=== PATIENT | male | born 1955 | race Caucasian/White ===

== ENCOUNTER 2020-11-01 08:57 | Inpatient (IN) ==
[2020-11-01] MEDS ORDERED: methylPREDNISolone SOD SUC 125 MG/2 ML VIAL IV STA (09:21)
[2020-11-01] MEDS ORDERED: ALBUTEROL 2.5 MG/3 ML NEB RESP TX STA (09:23)
[2020-11-01 09:31] LABS: Basophils # 0.1 10*3/uL (0.0-0.2); Basophils % 0.4 % (0.0-0.8); Eosinophils % 0.2 % (0.00-10.9); Hematocrit 43.6 VOL% (42.0-52.0); Hemoglobin 13.5 GM/DL (14.0-18.0); Immature Granulocytes % 1.9 %; Immature Granulocytes Absolute 0.21 #; Lymphocytes # 1.4 10*3/uL (1.4-4.0); Mean Platelet Volume 8.9 FL (9.6-12.0); Monocytes % 9.6 % (1.7-12.7); Neutrophils % 75.9 % (38.7-73.9); Platelet Count 464 T/CUMM (130-400); Red Blood Count 4.69 MC/CUMM (3.8-5.5); Red Cell Distribution Width 16.1 % (9.3-17.3); White Blood Count 11.3 T/CUMM (4-12)
[2020-11-01 09:41] LABS: Albumin 2.6 G/DL (3.4-5.0); Bilirubin,Total 0.5 MG/DL (0.2-1.0); Calcium 9.7 MG/DL (8.5-10.1); Total Protein 9.1 G/DL (6.4-8.3)
[2020-11-01] MEDS ORDERED: cefTRIAXone 1,000 MG in SODIUM CHLORIDE 0.9% 100 ML IV STA (11:08)
[2020-11-01 12:45] LABS: Ferritin 134.5 ng/ml (26-388)
[2020-11-01] MEDS ORDERED: GLUCAGON 1 MG VIAL IM PRN (12:51)
[2020-11-01] MEDS ORDERED: hydrALAZINE 20 MG/1 ML VIAL IV PRN (12:51)
[2020-11-01] MEDS ORDERED: DEXTROSE 50% 25 GM/50 ML VIAL IV PRN (12:51)
[2020-11-01] MEDS ORDERED: ACETAMINOPHEN 325 MG TABLET PO PRN (12:51)
[2020-11-01] MEDS ORDERED: NICOTINE 14 MG/24 HR PATCH TRANSDERM PRN (13:16)
[2020-11-01 13:22] LABS: Risk Ratio 3.5; Thyroid Stimulating Hormone 4.23 uIU/ml (0.358-3.74); VLDL CHOLESTEROL 29.2 MG/DL
[2020-11-01] MEDS: traMADol 50 MG TABLET PO SCH ×3 (13:30→21:14)
[2020-11-01] MEDS: ALBUTEROL/IPRATROPIUM 3 ML NEB RESP TX SCH ×2 (13:49→19:49)
[2020-11-01 14:08] LABS: ABG Base Excess -3.4 MMOL/L (-2.5-2.5); ABG HCO3 21.6 MMOL/L (20-26); ABG Oxygen Saturation 97.1 % (95-100); ABG PCO2 34.3 MM HG (35-48); ABG PH 7.391 (7.35-7.45); ABG PO2 89.1 MM HG (80-95); ABG TCO2 18.3 MMOL/L (23-27)
[2020-11-01] MEDS: methylPREDNISolone SOD SUC 125 MG/2 ML VIAL IV SCH (18:26)
[2020-11-01] MEDS: ENOXAPARIN 40 MG/0.4 ML SYRINGE SUBCUT SCH ×2 (18:26→18:46)
[2020-11-01] MEDS: AZITHROMYCIN INJ 500 MG in SODIUM CHLORIDE 0.9% 250 ML IV SCH (18:27)
[2020-11-01] MEDS: clonazePAM 0.5 MG TABLET PO SCH (21:13)
[2020-11-01] MEDS: carvediloL 3.125 MG TABLET PO SCH (21:14)
[2020-11-02] MEDS: ALBUTEROL/IPRATROPIUM 3 ML NEB RESP TX SCH ×4 (01:34→19:44)
[2020-11-02] MEDS: methylPREDNISolone SOD SUC 125 MG/2 ML VIAL IV SCH ×3 (02:05→21:06)
[2020-11-02] MEDS: traMADol 50 MG TABLET PO SCH ×6 (02:29→22:01)
[2020-11-02 07:47] LABS: Basophils % 0.1 % (0.0-0.8); Hematocrit 37.2 VOL% (42.0-52.0); Hemoglobin 11.8 GM/DL (14.0-18.0); Immature Granulocytes % 0.7 %; Immature Granulocytes Absolute 0.07 #; Lymphocytes # 1.1 10*3/uL (1.4-4.0); Lymphocytes % 10.4 % (21.2-54.2); Mean Corpuscular HGB Conc 31.7 GM/DL (32-36); Mean Corpuscular Volume 90.3 FL (87-102); Mean Platelet Volume 9.2 FL (9.6-12.0); Monocytes % 2.9 % (1.7-12.7); Neutrophils % 85.9 % (38.7-73.9); Platelet Count 408 T/CUMM (130-400); Red Blood Count 4.12 MC/CUMM (3.8-5.5); Red Cell Distribution Width 15.9 % (9.3-17.3); White Blood Count 10.1 T/CUMM (4-12)
[2020-11-02 08:16] LABS: Calcium 9.1 MG/DL (8.5-10.1); Osmolality,Calculated 281.7 MOS/KG (273-304); Potassium 4.6 MMOL/L (3.5-5.1)
[2020-11-02] MEDS: CHOLECALCIFEROL 1,000 UNIT TABLET PO SCH (09:27)
[2020-11-02] MEDS: ASPIRIN EC 81 MG TABLET PO SCH (09:27)
[2020-11-02] MEDS: lisinopriL 20 MG TABLET PO SCH (09:27)
[2020-11-02] MEDS: ATORVASTATIN 20 MG TABLET PO SCH (09:28)
[2020-11-02] MEDS: SERTRALINE 100 MG TABLET PO SCH (09:28)
[2020-11-02] MEDS: carvediloL 3.125 MG TABLET PO SCH ×2 (09:29→20:46)
[2020-11-02] MEDS: cefTRIAXone 1,000 MG in SYRINGE 1 EACH IV SCH (13:25)
[2020-11-02] MEDS: AZITHROMYCIN INJ 500 MG in SODIUM CHLORIDE 0.9% 250 ML IV SCH (18:39)
[2020-11-02] MEDS: ENOXAPARIN 40 MG/0.4 ML SYRINGE SUBCUT SCH (18:40)
[2020-11-02] MEDS: clonazePAM 0.5 MG TABLET PO SCH (20:46)
[2020-11-03] MEDS: ALBUTEROL/IPRATROPIUM 3 ML NEB RESP TX SCH ×3 (01:49→13:20)
[2020-11-03] MEDS: traMADol 50 MG TABLET PO SCH ×4 (01:54→16:04)
[2020-11-03 05:21] LABS: Basophils % 0.1 % (0.0-0.8); Hematocrit 36.4 VOL% (42.0-52.0); Hemoglobin 10.9 GM/DL (14.0-18.0); Immature Granulocytes % 0.6 %; Immature Granulocytes Absolute 0.08 #; Mean Corpuscular HGB Conc 29.9 GM/DL (32-36); Mean Corpuscular Volume 95.3 FL (87-102); Mean Platelet Volume 9.1 FL (9.6-12.0); Monocytes % 4.3 % (1.7-12.7); Platelet Count 398 T/CUMM (130-400); Red Blood Count 3.82 MC/CUMM (3.8-5.5); Red Cell Distribution Width 16.1 % (9.3-17.3); White Blood Count 12.8 T/CUMM (4-12)
[2020-11-03] MEDS: methylPREDNISolone SOD SUC 125 MG/2 ML VIAL IV SCH ×2 (05:34→19:11)
[2020-11-03 05:50] LABS: Calcium 8.9 MG/DL (8.5-10.1); Osmolality,Calculated 287.5 MOS/KG (273-304); Potassium 4.7 MMOL/L (3.5-5.1)
[2020-11-03] MEDS: carvediloL 3.125 MG TABLET PO SCH (09:00)
[2020-11-03] MEDS: lisinopriL 20 MG TABLET PO SCH (09:01)
[2020-11-03] MEDS: ASPIRIN EC 81 MG TABLET PO SCH (09:01)
[2020-11-03] MEDS: ATORVASTATIN 20 MG TABLET PO SCH (09:01)
[2020-11-03] MEDS: CHOLECALCIFEROL 1,000 UNIT TABLET PO SCH (09:01)
[2020-11-03] MEDS: SERTRALINE 100 MG TABLET PO SCH (09:01)
[2020-11-03 11:25] VITALS: BP 119/76
[2020-11-03] MEDS ORDERED: methylPREDNISolone SOD SUC 125 MG/2 ML VIAL IV SCH (14:00)
[2020-11-03] MEDS ORDERED: CALCIUM CARBONATE CHEW 500 MG TABLET PO ONE (15:38)
[2020-11-03] MEDS: cefTRIAXone 1,000 MG in SYRINGE 1 EACH IV SCH (16:03)
[2020-11-03] MEDS: ENOXAPARIN 40 MG/0.4 ML SYRINGE SUBCUT SCH (19:11)
== END 2020-11-03 18:35 | disposition home health service (06) | DRG 194 ==
LOC: N.ED 08:57 → N.EDINP 11:16 → N.4E 15:08
PROVIDERS: ADMIT Internal Medicine; ATTEND Internal Medicine

== ENCOUNTER 2020-12-12 03:10 | Inpatient (IN) ==
[2020-12-12] MEDS ORDERED: MIDAZOLAM 2 MG/2 ML VIAL ONE (03:40)
[2020-12-12] MEDS ORDERED: SODIUM CHLORIDE 0.9% 1,000 ML IV STA (03:41)
[2020-12-12] MEDS ORDERED: MIDAZOLAM 2 MG/2 ML VIAL IV STA (03:41)
[2020-12-12] MEDS ORDERED: SODIUM CHLORIDE 0.9% 500 ML IV STA (03:41)
[2020-12-12] MEDS ORDERED: EPINEPHrine 1 MG/10 ML SYRINGE ONE ×2 (04:02→04:10)
[2020-12-12 04:10] LABS: INR 1.6; PT Patient Result 16.8 SECS (9.8-11.9)
[2020-12-12 04:15] LABS: Basophils # 0.2 10*3/uL (0.0-0.2); Basophils % 0.8 % (0.0-0.8); Eosinophils # 0.1 10*3/uL (0.0-0.87); Eosinophils % 0.2 % (0.00-10.9); Hematocrit 48.6 VOL% (42.0-52.0); Hemoglobin 14.2 GM/DL (14.0-18.0); Immature Granulocytes % 6.8 %; Immature Granulocytes Absolute 1.83 #; Lymphocytes # 2.9 10*3/uL (1.4-4.0); Lymphocytes % 10.8 % (21.2-54.2); Mean Corpuscular HGB Conc 29.2 GM/DL (32-36); Mean Corpuscular Volume 96.8 FL (87-102); Monocytes % 5.8 % (1.7-12.7); Neutrophils % 75.6 % (38.7-73.9); Platelet Count 238 T/CUMM (130-400); Red Blood Count 5.02 MC/CUMM (3.8-5.5); Red Cell Distribution Width 17.2 % (9.3-17.3); White Blood Count 27.1 T/CUMM (4-12)
[2020-12-12 04:19] LABS: Alanine Aminotransferase 33 U/L (16-61); Albumin 2.7 G/DL (3.4-5.0); Alkaline Phosphatase 119 U/L (45-117); Aspartate Amino Transferase 72 U/L (0-37); Blood Urea Nitrogen 48 MG/DL (7-18); Calcium 10.4 MG/DL (8.5-10.1); Carbon Dioxide 13 MMOL/L (21-32); Glucose 146 MG/DL (74-106); Osmolality,Calculated 303.7 MOS/KG (273-304); Potassium 4.4 MMOL/L (3.5-5.1); Sodium 145 MMOL/L (136-145); Total Protein 8.3 G/DL (6.4-8.2)
[2020-12-12 04:20] LABS: Estimated Glom Filtration Rate 0 ML/MIN
[2020-12-12] MEDS ORDERED: MEROPENEM 1,000 MG in SODIUM CHLORIDE 0.9% 100 ML IV STA (04:28)
[2020-12-12] MEDS ORDERED: NOREPINEPHRINE 8 MG in SODIUM CHLORIDE 0.9% 242 ML IV PRN (04:55)
[2020-12-12] MEDS: MIDAZOLAM 100 MG in SODIUM CHLORIDE 0.9% 80 ML IV PRN (05:00)
[2020-12-12 05:06] LABS: ABG Base Excess -12.5 MMOL/L (-2.5-2.5); ABG HCO3 14.8 MMOL/L (20-26); ABG Oxygen Saturation 96.5 % (95-100); ABG PCO2 44.9 MM HG (35-48); ABG TCO2 14.7 MMOL/L (23-27)
[2020-12-12 05:07] LABS: ABG PH 7.166 (7.35-7.45)
[2020-12-12 05:08] LABS: Lymphocytes 16 % (20-55); Metamyelocytes 1 %; Myelocytes 1 %; Platelet Estimate Adequate; Segmented Neutrophils 74 % (50-85); Total Cells Counted 100
[2020-12-12 05:52] LABS: Bilirubin,Urine Negative (Negative); Blood, Urine Small mg/dL (Negative); Glucose,Urine (UA) Negative (Negative); Ketones,Urine 20 mg/dL (Negative); Mucus,Urine Many /LPF (Occasional); Nitrite,Urine Positive (Negative); Protein,Urine 30 MG/DL; RBC,Urine 17 /HPF (0-4); Sperm,Urine Moderate /HPF (Negative); Urine Appearance CLOUDY (Clear); Urine Color Amber (Yellow); Urine Specific Gravity 1.025 (1.001-1.035); Urine Urobilinogen < 2.0 EU/DL (0.2-1.0); WBC,Urine 1 /HPF (0-6)
[2020-12-12] MEDS ORDERED: ONDANSETRON 4 MG/2 ML VIAL IV PRN (07:41)
[2020-12-12] MEDS ORDERED: ALBUTEROL 2.5 MG/3 ML NEB RESP TX PRN (07:41)
[2020-12-12] MEDS ORDERED: NICOTINE 21 MG/24 HR PATCH TRANSDERM PRN (07:41)
[2020-12-12] MEDS ORDERED: DEXTROSE 50% 25 GM/50 ML VIAL IV PRN (07:51)
[2020-12-12] MEDS ORDERED: GLUCAGON 1 MG VIAL IM PRN (07:51)
[2020-12-12] MEDS ORDERED: ENOXAPARIN 30 MG/0.3 ML SYRINGE SUBCUT SCH (08:00)
[2020-12-12 08:26] LABS: ABG Base Excess -8.3 MMOL/L (-2.5-2.5); ABG HCO3 17.8 MMOL/L (20-26); ABG Oxygen Saturation 99.3 % (95-100); ABG PCO2 39.3 MM HG (35-48); ABG PH 7.273 (7.35-7.45); ABG TCO2 16.3 MMOL/L (23-27); Allen Test Positive; Pt O2 Delivery Device Ventilator
[2020-12-12] MEDS: LACTATED RINGERS 1,000 ML IV SCH ×3 (08:30→22:59)
[2020-12-12] MEDS: PANTOPRAZOLE 40 MG VIAL IV SCH (09:20)
[2020-12-12] MEDS: MEROPENEM 500 MG in SODIUM CHLORIDE 0.9% 100 ML IV SCH ×2 (09:21→16:37)
[2020-12-12] MEDS: HYDROCORTISONE 100 MG VIAL IV SCH ×3 (09:21→20:20)
[2020-12-12] MEDS: FLUDROCORTISONE 0.1 MG TABLET PER TUBE SCH ×2 (09:21→20:19)
[2020-12-12] MEDS ORDERED: POTASSIUM PHOSPHATE 30 MMOL in SODIUM CHLORIDE 0.9% 250 ML IV ONE (09:30)
[2020-12-12] MEDS ORDERED: VANCOMYCIN INJ 750 MG in SODIUM CHLORIDE 0.9% 250 ML IV ONE (10:00)
[2020-12-12] MEDS ORDERED: LACTATED RINGERS 500 ML IV ONE (15:30)
[2020-12-12 16:40] LABS: Calcium 8.2 MG/DL (8.5-10.1); Osmolality,Calculated 305.4 MOS/KG (273-304)
[2020-12-13] MEDS: MEROPENEM 500 MG in SODIUM CHLORIDE 0.9% 100 ML IV SCH ×3 (00:08→17:15)
[2020-12-13] MEDS: HYDROCORTISONE 100 MG VIAL IV SCH ×4 (02:30→20:10)
[2020-12-13 04:43] LABS: ABG Base Excess 0.1 MMOL/L (-2.5-2.5); ABG HCO3 24.5 MMOL/L (20-26); ABG Oxygen Saturation 98.7 % (95-100); ABG PCO2 40.8 MM HG (35-48); ABG PH 7.394 (7.35-7.45); ABG TCO2 22.8 MMOL/L (23-27)
[2020-12-13 05:11] LABS: Basophils % 0.2 % (0.0-0.8); Hemoglobin 9.4 GM/DL (14.0-18.0); Immature Granulocytes % 1.5 %; Immature Granulocytes Absolute 0.27 #; Lymphocytes # 1.2 10*3/uL (1.4-4.0); Lymphocytes % 6.5 % (21.2-54.2); Mean Corpuscular HGB Conc 30.3 GM/DL (32-36); Mean Corpuscular Volume 93.4 FL (87-102); Mean Platelet Volume 11.6 FL (9.6-12.0); Neutrophils % 84.8 % (38.7-73.9); Platelet Count 144 T/CUMM (130-400); Red Blood Count 3.32 MC/CUMM (3.8-5.5); Red Cell Distribution Width 17.2 % (9.3-17.3); White Blood Count 18.1 T/CUMM (4-12)
[2020-12-13 05:42] LABS: Alanine Aminotransferase 33 U/L (16-61); Albumin 1.8 G/DL (3.4-5.0); Alkaline Phosphatase 93 U/L (45-117); Aspartate Amino Transferase 72 U/L (0-37); Bilirubin,Total < 0.39 MG/DL (0.2-1.0); Blood Urea Nitrogen 44 MG/DL (7-18); Calcium 8.5 MG/DL (8.5-10.1); Carbon Dioxide 25 MMOL/L (21-32); Estimated Glom Filtration Rate 45 ML/MIN; Glucose 149 MG/DL (74-106); Osmolality,Calculated 303.6 MOS/KG (273-304); Potassium 4.1 MMOL/L (3.5-5.1); Sodium 146 MMOL/L (136-145); Total Protein 5.8 G/DL (6.4-8.2)
[2020-12-13 08:34] LABS: INR 1.2; PT Patient Result 12.6 SECS (9.8-11.9)
[2020-12-13] MEDS: ENOXAPARIN 40 MG/0.4 ML SYRINGE SUBCUT SCH (10:09)
[2020-12-13] MEDS: FLUDROCORTISONE 0.1 MG TABLET PER TUBE SCH ×2 (10:09→20:11)
[2020-12-13] MEDS: PANTOPRAZOLE 40 MG VIAL IV SCH (10:10)
[2020-12-13] MEDS: LACTATED RINGERS 1,000 ML IV SCH ×2 (10:20→17:15)
[2020-12-13] MEDS: VANCOMYCIN INJ 500 MG in SODIUM CHLORIDE 0.9% 100 ML IV SCH (12:50)
[2020-12-13] MEDS: ALBUTEROL/IPRATROPIUM 3 ML NEB RESP TX SCH ×2 (13:34→18:20)
[2020-12-13] MEDS ORDERED: ASPIRIN EC 81 MG TABLET PO SCH (15:00)
[2020-12-13] MEDS: MIDAZOLAM 100 MG in SODIUM CHLORIDE 0.9% 80 ML IV PRN (20:11)
[2020-12-14] MEDS: ALBUTEROL/IPRATROPIUM 3 ML NEB RESP TX SCH ×4 (00:15→20:21)
[2020-12-14] MEDS: MEROPENEM 500 MG in SODIUM CHLORIDE 0.9% 100 ML IV SCH ×4 (00:27→20:27)
[2020-12-14] MEDS: LACTATED RINGERS 1,000 ML IV SCH ×3 (00:27→17:38)
[2020-12-14] MEDS: HYDROCORTISONE 100 MG VIAL IV SCH ×2 (01:30→08:32)
[2020-12-14 03:43] LABS: ABG HCO3 26.2 MMOL/L (20-26); ABG Oxygen Saturation 98.5 % (95-100); ABG PCO2 42.4 MM HG (35-48); ABG PH 7.409 (7.35-7.45); ABG TCO2 24.8 MMOL/L (23-27)
[2020-12-14 04:35] LABS: Basophils % 0.1 % (0.0-0.8); Hematocrit 28.4 VOL% (42.0-52.0); Hemoglobin 8.3 GM/DL (14.0-18.0); Immature Granulocytes % 1.9 %; Immature Granulocytes Absolute 0.23 #; Lymphocytes # 0.8 10*3/uL (1.4-4.0); Lymphocytes % 6.2 % (21.2-54.2); Mean Corpuscular HGB Conc 29.2 GM/DL (32-36); Mean Corpuscular Volume 95.9 FL (87-102); Mean Platelet Volume 11.5 FL (9.6-12.0); Monocytes % 6.5 % (1.7-12.7); Neutrophils % 85.3 % (38.7-73.9); Platelet Count 132 T/CUMM (130-400); Red Blood Count 2.96 MC/CUMM (3.8-5.5); Red Cell Distribution Width 17.3 % (9.3-17.3); White Blood Count 12.4 T/CUMM (4-12)
[2020-12-14 04:53] LABS: Alanine Aminotransferase 31 U/L (16-61); Albumin 1.6 G/DL (3.4-5.0); Alkaline Phosphatase 94 U/L (45-117); Aspartate Amino Transferase 65 U/L (0-37); Bilirubin,Total < 0.39 MG/DL (0.2-1.0); Blood Urea Nitrogen 33 MG/DL (7-18); Calcium 8.2 MG/DL (8.5-10.1); Carbon Dioxide 28 MMOL/L (21-32); Estimated Glom Filtration Rate 71 ML/MIN; Glucose 237 MG/DL (74-106); Osmolality,Calculated 304.6 MOS/KG (273-304); Potassium 3.7 MMOL/L (3.5-5.1); Sodium 146 MMOL/L (136-145); Total Protein 5.4 G/DL (6.4-8.2)
[2020-12-14 04:54] LABS: Band Neutrophils 2 % (0-10); Hypochromasia 1+; Lymphocytes 3 % (20-55); Microcytosis 1+; Platelet Estimate Adequate; Segmented Neutrophils 89 % (50-85); Total Cells Counted 100
[2020-12-14] MEDS ORDERED: AMIODARONE INJ 150 MG in DEXTROSE 5% 100 ML IV ONE (07:04)
[2020-12-14] MEDS ORDERED: AMIODARONE INJ 450 MG in DEXTROSE 5% 241 ML IV SCH (07:30)
[2020-12-14] MEDS: PANTOPRAZOLE 40 MG VIAL IV SCH (08:31)
[2020-12-14] MEDS: ENOXAPARIN 40 MG/0.4 ML SYRINGE SUBCUT SCH (08:32)
[2020-12-14] MEDS: ASPIRIN CHEW 81 MG TABLET PO SCH (08:33)
[2020-12-14] MEDS: FLUDROCORTISONE 0.1 MG TABLET PER TUBE SCH ×2 (08:33→20:26)
[2020-12-14] MEDS: VANCOMYCIN INJ 500 MG in SODIUM CHLORIDE 0.9% 100 ML IV SCH (12:11)
[2020-12-14] MEDS ORDERED: POTASSIUM PHOSPHATE 15 MMOL in SODIUM CHLORIDE 0.9% 100 ML IV ONE (16:00)
[2020-12-14] MEDS: INSULIN REGULAR 100 UNIT/ML SUBCUT SCH (17:38)
[2020-12-14] MEDS: AMIODARONE INJ 450 MG in DEXTROSE 5% 241 ML IV SCH (17:40)
[2020-12-14] MEDS ORDERED: HYDROCORTISONE 100 MG VIAL IV SCH (21:00)
[2020-12-14] MEDS: MIDAZOLAM 100 MG in SODIUM CHLORIDE 0.9% 80 ML IV PRN (22:19)
[2020-12-15] MEDS: INSULIN REGULAR 100 UNIT/ML SUBCUT SCH ×4 (01:33→18:22)
[2020-12-15] MEDS: LACTATED RINGERS 1,000 ML IV SCH ×4 (01:34→16:48)
[2020-12-15] MEDS: MIDAZOLAM 100 MG in SODIUM CHLORIDE 0.9% 80 ML IV PRN (01:35)
[2020-12-15] MEDS: MEROPENEM 500 MG in SODIUM CHLORIDE 0.9% 100 ML IV SCH ×4 (02:08→20:07)
[2020-12-15] MEDS: ALBUTEROL/IPRATROPIUM 3 ML NEB RESP TX SCH ×4 (02:10→20:20)
[2020-12-15 04:10] LABS: Allen Test Positive; Pt O2 Delivery Device Ventilator
[2020-12-15 04:47] LABS: ABG Base Excess 3.4 MMOL/L (-2.5-2.5); ABG HCO3 27.4 MMOL/L (20-26); ABG Oxygen Saturation 94.2 % (95-100); ABG PCO2 39.2 MM HG (35-48); ABG PH 7.453 (7.35-7.45); ABG PO2 66.9 MM HG (80-95); ABG TCO2 25.3 MMOL/L (23-27)
[2020-12-15 05:20] LABS: Basophils % 0.3 % (0.0-0.8); Eosinophils % 0.1 % (0.00-10.9); Hematocrit 28.8 VOL% (42.0-52.0); Hemoglobin 8.8 GM/DL (14.0-18.0); Immature Granulocytes % 2.9 %; Immature Granulocytes Absolute 0.38 #; Lymphocytes # 1.3 10*3/uL (1.4-4.0); Lymphocytes % 9.9 % (21.2-54.2); Mean Corpuscular HGB Conc 30.6 GM/DL (32-36); Mean Corpuscular Volume 94.7 FL (87-102); Mean Platelet Volume 11.6 FL (9.6-12.0); Monocytes % 8.5 % (1.7-12.7); NRBC # 0.02 10*3/uL; Neutrophils % 78.3 % (38.7-73.9); Platelet Count 134 T/CUMM (130-400); Red Blood Count 3.04 MC/CUMM (3.8-5.5); Red Cell Distribution Width 17.5 % (9.3-17.3); White Blood Count 13.1 T/CUMM (4-12)
[2020-12-15 05:45] LABS: Band Neutrophils 2 % (0-10); Lymphocytes 6 % (20-55); Segmented Neutrophils 85 % (50-85); Total Cells Counted 100
[2020-12-15 05:46] LABS: Hypochromasia 1+; Microcytosis 1+; Platelet Estimate Adequate
[2020-12-15 06:02] LABS: Albumin 1.6 G/DL (3.4-5.0); Bilirubin,Total 0.6 MG/DL (0.2-1.0); Calcium 8.5 MG/DL (8.5-10.1); Potassium 3.4 MMOL/L (3.5-5.1); Total Protein 5.5 G/DL (6.4-8.2)
[2020-12-15] MEDS ORDERED: POTASSIUM PHOSPHATE 30 MMOL in SODIUM CHLORIDE 0.9% 250 ML IV ONE (08:33)
[2020-12-15] MEDS: ENOXAPARIN 40 MG/0.4 ML SYRINGE SUBCUT SCH (08:57)
[2020-12-15] MEDS: PANTOPRAZOLE 40 MG VIAL IV SCH (08:58)
[2020-12-15] MEDS: AMIODARONE INJ 450 MG in DEXTROSE 5% 241 ML IV SCH (09:00)
[2020-12-15] MEDS: FLUDROCORTISONE 0.1 MG TABLET PER TUBE SCH ×2 (09:01→20:07)
[2020-12-15] MEDS: ASPIRIN CHEW 81 MG TABLET PO SCH (09:01)
[2020-12-15] MEDS: HYDROCORTISONE 100 MG VIAL IV SCH ×2 (09:02→20:07)
[2020-12-15] MEDS: VANCOMYCIN INJ 500 MG in SODIUM CHLORIDE 0.9% 100 ML IV SCH (12:48)
[2020-12-16] MEDS: INSULIN REGULAR 100 UNIT/ML SUBCUT SCH ×5 (00:12→23:44)
[2020-12-16] MEDS: ALBUTEROL/IPRATROPIUM 3 ML NEB RESP TX SCH ×4 (00:27→19:38)
[2020-12-16] MEDS: AMIODARONE INJ 450 MG in DEXTROSE 5% 241 ML IV SCH ×2 (00:38→15:16)
[2020-12-16] MEDS: MEROPENEM 500 MG in SODIUM CHLORIDE 0.9% 100 ML IV SCH ×4 (02:00→20:15)
[2020-12-16] MEDS: MORPHINE 4 MG/1 ML VIAL IV PRN ×3 (02:00→23:02)
[2020-12-16] MEDS: LACTATED RINGERS 1,000 ML IV SCH ×2 (03:00→12:17)
[2020-12-16 04:50] LABS: Basophils % 0.3 % (0.0-0.8); Hematocrit 28.8 VOL% (42.0-52.0); Hemoglobin 8.5 GM/DL (14.0-18.0); Immature Granulocytes % 6.2 %; Immature Granulocytes Absolute 0.85 #; Lymphocytes % 6.9 % (21.2-54.2); Mean Corpuscular HGB Conc 29.5 GM/DL (32-36); Mean Corpuscular Volume 96.6 FL (87-102); Monocytes % 6.4 % (1.7-12.7); NRBC # 0.02 10*3/uL; Neutrophils % 80.2 % (38.7-73.9); Platelet Count 158 T/CUMM (130-400); Red Blood Count 2.98 MC/CUMM (3.8-5.5); Red Cell Distribution Width 18.1 % (9.3-17.3); White Blood Count 13.7 T/CUMM (4-12)
[2020-12-16 04:53] LABS: ABG Base Excess 2.9 MMOL/L (-2.5-2.5); ABG HCO3 26.9 MMOL/L (20-26); ABG Oxygen Saturation 94.3 % (95-100); ABG PCO2 39.3 MM HG (35-48); ABG PH 7.454 (7.35-7.45); ABG PO2 69.8 MM HG (80-95); ABG TCO2 28.2 MMOL/L (23-27); Allen Test Positive; Pt O2 Delivery Device Ventilator
[2020-12-16 05:04] LABS: Calcium 8.1 MG/DL (8.5-10.1); Osmolality,Calculated 287.1 MOS/KG (273-304); Potassium 3.7 MMOL/L (3.5-5.1)
[2020-12-16 05:08] LABS: Alanine Aminotransferase 41 U/L (16-61); Albumin 1.5 G/DL (3.4-5.0); Alkaline Phosphatase 101 U/L (45-117); Aspartate Amino Transferase 55 U/L (0-37); Bilirubin,Total < 0.39 MG/DL (0.2-1.0); Blood Urea Nitrogen 23 MG/DL (7-18); Calcium 8.1 MG/DL (8.5-10.1); Carbon Dioxide 28 MMOL/L (21-32); Estimated Glom Filtration Rate 74 ML/MIN; Glucose 135 MG/DL (74-106); Potassium 3.7 MMOL/L (3.5-5.1); Sodium 143 MMOL/L (136-145); Total Protein 5.5 G/DL (6.4-8.2)
[2020-12-16 05:10] LABS: Band Neutrophils 1 % (0-10); Hypochromasia 1+; Lymphocytes 8 % (20-55); Metamyelocytes 1 %; Microcytosis 1+; Segmented Neutrophils 84 % (50-85); Total Cells Counted 100
[2020-12-16 05:11] LABS: Anisocytosis 1+; Platelet Estimate Adequate; Polychromasia Slight
[2020-12-16] MEDS: MIDAZOLAM 100 MG in SODIUM CHLORIDE 0.9% 80 ML IV PRN (05:39)
[2020-12-16] MEDS: PANTOPRAZOLE 40 MG VIAL IV SCH (08:07)
[2020-12-16] MEDS: ENOXAPARIN 40 MG/0.4 ML SYRINGE SUBCUT SCH (08:07)
[2020-12-16] MEDS: FLUDROCORTISONE 0.1 MG TABLET PER TUBE SCH ×2 (08:08→20:22)
[2020-12-16] MEDS: HYDROCORTISONE 100 MG VIAL IV SCH ×2 (08:08→20:22)
[2020-12-16] MEDS: ASPIRIN CHEW 81 MG TABLET PO SCH (08:08)
[2020-12-16] MEDS: VANCOMYCIN INJ 500 MG in SODIUM CHLORIDE 0.9% 100 ML IV SCH ×2 (12:17→23:44)
[2020-12-16] MEDS: AMIODARONE 200 MG TABLET PER TUBE SCH ×2 (17:00→20:22)
[2020-12-17] MEDS: ALBUTEROL/IPRATROPIUM 3 ML NEB RESP TX SCH ×4 (00:12→18:14)
[2020-12-17] MEDS: MEROPENEM 500 MG in SODIUM CHLORIDE 0.9% 100 ML IV SCH ×4 (01:35→20:39)
[2020-12-17 05:07] LABS: Basophils % 0.1 % (0.0-0.8); Hematocrit 29.1 VOL% (42.0-52.0); Hemoglobin 8.6 GM/DL (14.0-18.0); Immature Granulocytes % 5.6 %; Immature Granulocytes Absolute 0.76 #; Lymphocytes # 0.9 10*3/uL (1.4-4.0); Lymphocytes % 6.9 % (21.2-54.2); Mean Corpuscular HGB Conc 29.6 GM/DL (32-36); Mean Corpuscular Volume 95.7 FL (87-102); Mean Platelet Volume 11.8 FL (9.6-12.0); Monocytes % 6.6 % (1.7-12.7); Neutrophils % 80.8 % (38.7-73.9); Platelet Count 177 T/CUMM (130-400); Red Blood Count 3.04 MC/CUMM (3.8-5.5); Red Cell Distribution Width 17.9 % (9.3-17.3); White Blood Count 13.6 T/CUMM (4-12)
[2020-12-17 05:29] LABS: Hypochromasia 1+; Lymphocytes 7 % (20-55); Microcytosis 1+; Platelet Estimate Adequate; Segmented Neutrophils 88 % (50-85); Total Cells Counted 100
[2020-12-17 06:00] LABS: Calcium 8.3 MG/DL (8.5-10.1); Osmolality,Calculated 291.7 MOS/KG (273-304); Potassium 3.7 MMOL/L (3.5-5.1)
[2020-12-17] MEDS: INSULIN REGULAR 100 UNIT/ML SUBCUT SCH ×3 (06:04→17:54)
[2020-12-17 06:23] LABS: ABG Base Excess 4.6 MMOL/L (-2.5-2.5); ABG HCO3 29.1 MMOL/L (20-26); ABG PCO2 43.5 MM HG (35-48); ABG PH 7.444 (7.35-7.45); ABG PO2 70.2 MM HG (80-95); ABG TCO2 30.5 MMOL/L (23-27)
[2020-12-17 08:07] VITALS: BP 135/78
[2020-12-17] MEDS: HYDROCORTISONE 100 MG VIAL IV SCH ×2 (08:14→20:40)
[2020-12-17] MEDS: AMIODARONE 200 MG TABLET PER TUBE SCH ×2 (08:15→20:40)
[2020-12-17] MEDS: FLUDROCORTISONE 0.1 MG TABLET PER TUBE SCH ×2 (08:15→20:40)
[2020-12-17] MEDS: PANTOPRAZOLE 40 MG VIAL IV SCH (08:15)
[2020-12-17] MEDS: ASPIRIN CHEW 81 MG TABLET PO SCH (08:15)
[2020-12-17] MEDS: ENOXAPARIN 40 MG/0.4 ML SYRINGE SUBCUT SCH (08:15)
[2020-12-17] MEDS: LACTATED RINGERS 1,000 ML IV SCH (11:23)
[2020-12-17] MEDS: MIDAZOLAM 100 MG in SODIUM CHLORIDE 0.9% 80 ML IV PRN (12:20)
[2020-12-17] MEDS: VANCOMYCIN INJ 500 MG in SODIUM CHLORIDE 0.9% 100 ML IV SCH (12:35)
[2020-12-18] MEDS: INSULIN REGULAR 100 UNIT/ML SUBCUT SCH ×4 (00:45→18:02)
[2020-12-18] MEDS: VANCOMYCIN INJ 500 MG in SODIUM CHLORIDE 0.9% 100 ML IV SCH ×2 (00:50→11:45)
[2020-12-18] MEDS: ALBUTEROL/IPRATROPIUM 3 ML NEB RESP TX SCH ×4 (01:54→18:55)
[2020-12-18 03:18] LABS: ABG Base Excess 6.3 MMOL/L (-2.5-2.5); ABG HCO3 30.1 MMOL/L (20-26); ABG Oxygen Saturation 95.3 % (95-100); ABG PCO2 39.6 MM HG (35-48); ABG PH 7.489 (7.35-7.45); ABG PO2 70.6 MM HG (80-95); ABG TCO2 27.5 MMOL/L (23-27); Allen Test Positive; Pt O2 Delivery Device Ventilator
[2020-12-18] MEDS: MIDAZOLAM 100 MG in SODIUM CHLORIDE 0.9% 80 ML IV PRN ×2 (03:50→20:27)
[2020-12-18] MEDS: MEROPENEM 500 MG in SODIUM CHLORIDE 0.9% 100 ML IV SCH ×4 (03:50→20:28)
[2020-12-18 04:24] LABS: Basophils % 0.2 % (0.0-0.8); Eosinophils % 0.1 % (0.00-10.9); Hematocrit 30.1 VOL% (42.0-52.0); Hemoglobin 9.1 GM/DL (14.0-18.0); Immature Granulocytes % 6.8 %; Immature Granulocytes Absolute 0.93 #; Lymphocytes # 0.8 10*3/uL (1.4-4.0); Lymphocytes % 5.9 % (21.2-54.2); Mean Corpuscular HGB Conc 30.2 GM/DL (32-36); Mean Corpuscular Volume 95.9 FL (87-102); Mean Platelet Volume 11.3 FL (9.6-12.0); Monocytes % 5.9 % (1.7-12.7); Neutrophils % 81.1 % (38.7-73.9); Platelet Count 231 T/CUMM (130-400); Red Blood Count 3.14 MC/CUMM (3.8-5.5); White Blood Count 13.7 T/CUMM (4-12)
[2020-12-18 04:43] LABS: Band Neutrophils 1 % (0-10); Hypochromasia Slight; Lymphocytes 5 % (20-55); Platelet Estimate Normal; Segmented Neutrophils 91 % (50-85); Total Cells Counted 100
[2020-12-18 04:44] LABS: Alanine Aminotransferase 38 U/L (16-61); Albumin 1.4 G/DL (3.4-5.0); Alkaline Phosphatase 96 U/L (45-117); Aspartate Amino Transferase 35 U/L (0-37); Bilirubin,Total < 0.39 MG/DL (0.2-1.0); Blood Urea Nitrogen 22 MG/DL (7-18); Calcium 7.9 MG/DL (8.5-10.1); Carbon Dioxide 32 MMOL/L (21-32); Estimated Glom Filtration Rate 101 ML/MIN; Glucose 125 MG/DL (74-106); Osmolality,Calculated 291.7 MOS/KG (273-304); Potassium 3.5 MMOL/L (3.5-5.1); Sodium 145 MMOL/L (136-145); Total Protein 5.2 G/DL (6.4-8.2)
[2020-12-18] MEDS: LACTATED RINGERS 1,000 ML IV SCH (05:19)
[2020-12-18] MEDS: PANTOPRAZOLE 40 MG VIAL IV SCH (08:21)
[2020-12-18] MEDS: ENOXAPARIN 40 MG/0.4 ML SYRINGE SUBCUT SCH (08:21)
[2020-12-18] MEDS: ASPIRIN CHEW 81 MG TABLET PO SCH (08:22)
[2020-12-18] MEDS: FLUDROCORTISONE 0.1 MG TABLET PER TUBE SCH ×2 (08:22→20:27)
[2020-12-18] MEDS: AMIODARONE 200 MG TABLET PER TUBE SCH ×2 (08:22→20:27)
[2020-12-18] MEDS: HYDROCORTISONE 100 MG VIAL IV SCH ×2 (08:22→20:28)
[2020-12-19] MEDS: INSULIN REGULAR 100 UNIT/ML SUBCUT SCH ×4 (00:30→17:51)
[2020-12-19] MEDS: VANCOMYCIN INJ 500 MG in SODIUM CHLORIDE 0.9% 100 ML IV SCH ×3 (01:00→23:55)
[2020-12-19] MEDS: ALBUTEROL/IPRATROPIUM 3 ML NEB RESP TX SCH ×4 (01:10→19:09)
[2020-12-19] MEDS: MEROPENEM 500 MG in SODIUM CHLORIDE 0.9% 100 ML IV SCH ×4 (03:00→20:34)
[2020-12-19 05:02] LABS: ABG Base Excess 6.9 MMOL/L (-2.5-2.5); ABG HCO3 30.6 MMOL/L (20-26); ABG Oxygen Saturation 93.2 % (95-100); ABG PCO2 41.3 MM HG (35-48); ABG PH 7.483 (7.35-7.45); ABG PO2 63.8 MM HG (80-95); ABG TCO2 28.5 MMOL/L (23-27)
[2020-12-19 05:06] LABS: Basophils % 0.3 % (0.0-0.8); Hematocrit 30.7 VOL% (42.0-52.0); Hemoglobin 9.3 GM/DL (14.0-18.0); Immature Granulocytes % 8.6 %; Immature Granulocytes Absolute 1.23 #; Lymphocytes # 0.8 10*3/uL (1.4-4.0); Lymphocytes % 5.8 % (21.2-54.2); Mean Corpuscular HGB Conc 30.3 GM/DL (32-36); Mean Platelet Volume 10.7 FL (9.6-12.0); NRBC # 0.02 10*3/uL; Neutrophils % 79.3 % (38.7-73.9); Platelet Count 285 T/CUMM (130-400); Red Blood Count 3.23 MC/CUMM (3.8-5.5); Red Cell Distribution Width 18.2 % (9.3-17.3); White Blood Count 14.2 T/CUMM (4-12)
[2020-12-19 05:19] LABS: Calcium 7.8 MG/DL (8.5-10.1); Osmolality,Calculated 291.8 MOS/KG (273-304); Potassium 3.5 MMOL/L (3.5-5.1)
[2020-12-19 05:55] LABS: Band Neutrophils 3 % (0-10); Lymphocytes 5 % (20-55); Metamyelocytes 3 %; Myelocytes 2 %; Promyelocytes 3 %; Segmented Neutrophils 76 % (50-85); Total Cells Counted 100
[2020-12-19 05:56] LABS: Anisocytosis Slight; Hypochromasia 2+; Macrocytosis Slight; Platelet Estimate Normal
[2020-12-19] MEDS: HYDROCORTISONE 100 MG VIAL IV SCH ×2 (08:37→20:35)
[2020-12-19] MEDS: PANTOPRAZOLE 40 MG VIAL IV SCH (08:38)
[2020-12-19] MEDS: FLUDROCORTISONE 0.1 MG TABLET PER TUBE SCH ×2 (08:39→20:35)
[2020-12-19] MEDS: ASPIRIN CHEW 81 MG TABLET PO SCH (08:39)
[2020-12-19] MEDS: ENOXAPARIN 40 MG/0.4 ML SYRINGE SUBCUT SCH (08:39)
[2020-12-19] MEDS: AMIODARONE 200 MG TABLET PER TUBE SCH ×2 (08:39→20:35)
[2020-12-19] MEDS: MIDAZOLAM 100 MG in SODIUM CHLORIDE 0.9% 80 ML IV PRN (15:00)
[2020-12-20] MEDS: INSULIN REGULAR 100 UNIT/ML SUBCUT SCH ×4 (00:06→18:19)
[2020-12-20] MEDS: ALBUTEROL/IPRATROPIUM 3 ML NEB RESP TX SCH ×4 (02:22→19:48)
[2020-12-20] MEDS: MEROPENEM 500 MG in SODIUM CHLORIDE 0.9% 100 ML IV SCH ×3 (02:35→17:12)
[2020-12-20 04:30] LABS: Basophils % 0.2 % (0.0-0.8); Eosinophils % 0.1 % (0.00-10.9); Hematocrit 32.6 VOL% (42.0-52.0); Hemoglobin 9.7 GM/DL (14.0-18.0); Immature Granulocytes Absolute 1.11 #; Lymphocytes % 5.2 % (21.2-54.2); Mean Corpuscular HGB Conc 29.8 GM/DL (32-36); Mean Corpuscular Volume 95.6 FL (87-102); Mean Platelet Volume 10.1 FL (9.6-12.0); Monocytes % 6.4 % (1.7-12.7); Neutrophils % 82.1 % (38.7-73.9); Platelet Count 322 T/CUMM (130-400); Red Blood Count 3.41 MC/CUMM (3.8-5.5); Red Cell Distribution Width 18.4 % (9.3-17.3); White Blood Count 18.6 T/CUMM (4-12)
[2020-12-20 04:45] LABS: Calcium 7.6 MG/DL (8.5-10.1); Potassium 3.4 MMOL/L (3.5-5.1)
[2020-12-20 04:58] LABS: Hypochromasia 1+; Lymphocytes 4 % (20-55); Microcytosis 1+; Platelet Estimate Adequate; Segmented Neutrophils 89 % (50-85); Total Cells Counted 100
[2020-12-20 05:11] LABS: ABG Base Excess 5.1 MMOL/L (-2.5-2.5); ABG HCO3 28.7 MMOL/L (20-26); ABG Oxygen Saturation 93.1 % (95-100); ABG PCO2 38.3 MM HG (35-48); ABG PH 7.492 (7.35-7.45); ABG PO2 64.9 MM HG (80-95); ABG TCO2 29.8 MMOL/L (23-27)
[2020-12-20] MEDS: ASPIRIN CHEW 81 MG TABLET PO SCH (08:08)
[2020-12-20] MEDS: ENOXAPARIN 40 MG/0.4 ML SYRINGE SUBCUT SCH (08:08)
[2020-12-20] MEDS: HYDROCORTISONE 100 MG VIAL IV SCH ×2 (08:08→21:10)
[2020-12-20] MEDS: AMIODARONE 200 MG TABLET PER TUBE SCH ×2 (08:08→21:11)
[2020-12-20] MEDS: PANTOPRAZOLE 40 MG VIAL IV SCH (08:08)
[2020-12-20] MEDS: FLUDROCORTISONE 0.1 MG TABLET PER TUBE SCH ×2 (08:08→21:11)
[2020-12-20] MEDS: MIDAZOLAM 100 MG in SODIUM CHLORIDE 0.9% 80 ML IV PRN (09:20)
[2020-12-21] MEDS: ALBUTEROL/IPRATROPIUM 3 ML NEB RESP TX SCH ×4 (00:31→19:48)
[2020-12-21] MEDS: MEROPENEM 500 MG in SODIUM CHLORIDE 0.9% 100 ML IV SCH ×5 (02:35→22:08)
[2020-12-21] MEDS: INSULIN REGULAR 100 UNIT/ML SUBCUT SCH ×4 (02:54→18:40)
[2020-12-21 04:36] LABS: ABG Base Excess 7.2 MMOL/L (-2.5-2.5); ABG HCO3 30.9 MMOL/L (20-26); ABG Oxygen Saturation 90.4 % (95-100); ABG PCO2 40.2 MM HG (35-48); ABG PH 7.497 (7.35-7.45); ABG PO2 55.7 MM HG (80-95); ABG TCO2 28.5 MMOL/L (23-27); Allen Test Positive; Pt O2 Delivery Device Ventilator
[2020-12-21 04:51] LABS: Basophils # 0.1 10*3/uL (0.0-0.2); Basophils % 0.3 % (0.0-0.8); Eosinophils % 0.1 % (0.00-10.9); Hematocrit 29.7 VOL% (42.0-52.0); Hemoglobin 9.1 GM/DL (14.0-18.0); Immature Granulocytes % 3.9 %; Immature Granulocytes Absolute 0.67 #; Lymphocytes # 0.8 10*3/uL (1.4-4.0); Lymphocytes % 4.7 % (21.2-54.2); Mean Corpuscular HGB Conc 30.6 GM/DL (32-36); Mean Corpuscular Volume 93.4 FL (87-102); Mean Platelet Volume 9.9 FL (9.6-12.0); Monocytes % 4.1 % (1.7-12.7); Neutrophils % 86.9 % (38.7-73.9); Platelet Count 284 T/CUMM (130-400); Red Blood Count 3.18 MC/CUMM (3.8-5.5); Red Cell Distribution Width 18.4 % (9.3-17.3); White Blood Count 17.4 T/CUMM (4-12)
[2020-12-21 05:08] LABS: Calcium 7.8 MG/DL (8.5-10.1); Osmolality,Calculated 291.7 MOS/KG (273-304); Potassium 3.3 MMOL/L (3.5-5.1)
[2020-12-21 05:14] LABS: Band Neutrophils 1 % (0-10); Hypochromasia 1+; Lymphocytes 4 % (20-55); Microcytosis 1+; Platelet Estimate Adequate; Segmented Neutrophils 94 % (50-85); Total Cells Counted 100
[2020-12-21] MEDS: MIDAZOLAM 100 MG in SODIUM CHLORIDE 0.9% 80 ML IV PRN (06:06)
[2020-12-21] MEDS ORDERED: FUROSEMIDE 40 MG/4 ML VIAL IV ONE (07:52)
[2020-12-21] MEDS: ENOXAPARIN 40 MG/0.4 ML SYRINGE SUBCUT SCH (09:08)
[2020-12-21] MEDS: PANTOPRAZOLE 40 MG VIAL IV SCH (09:08)
[2020-12-21] MEDS: HYDROCORTISONE 100 MG VIAL IV SCH ×2 (09:09→20:12)
[2020-12-21] MEDS: AMIODARONE 200 MG TABLET PER TUBE SCH ×2 (09:09→20:13)
[2020-12-21] MEDS: POLYETHYLENE GLYCOL POWDER 17 GM PACK PO SCH (09:09)
[2020-12-21] MEDS: ASPIRIN CHEW 81 MG TABLET PO SCH (09:09)
[2020-12-21] MEDS: FLUDROCORTISONE 0.1 MG TABLET PER TUBE SCH ×2 (09:09→20:12)
[2020-12-21] MEDS: POTASSIUM CHLORIDE 20 MEQ/15 ML UDCUP PER TUBE SCH ×2 (09:44→14:29)
[2020-12-21] MEDS ORDERED: SODIUM PHOSPHATE ENEMA 133 ML BOTTLE RECTAL ONE ×2 (11:00→13:00)
[2020-12-22] MEDS: ALBUTEROL/IPRATROPIUM 3 ML NEB RESP TX SCH ×3 (00:36→12:30)
[2020-12-22] MEDS: INSULIN REGULAR 100 UNIT/ML SUBCUT SCH ×3 (02:39→11:37)
[2020-12-22] MEDS: MIDAZOLAM 100 MG in SODIUM CHLORIDE 0.9% 80 ML IV PRN (03:12)
[2020-12-22 04:17] LABS: Basophils % 0.1 % (0.0-0.8); Eosinophils % 0.1 % (0.00-10.9); Hematocrit 27.1 VOL% (42.0-52.0); Hemoglobin 8.2 GM/DL (14.0-18.0); Immature Granulocytes % 2.7 %; Immature Granulocytes Absolute 0.45 #; Lymphocytes # 0.9 10*3/uL (1.4-4.0); Lymphocytes % 5.2 % (21.2-54.2); Mean Corpuscular HGB Conc 30.3 GM/DL (32-36); Mean Corpuscular Volume 94.4 FL (87-102); Mean Platelet Volume 9.8 FL (9.6-12.0); Monocytes % 4.2 % (1.7-12.7); Neutrophils % 87.7 % (38.7-73.9); Platelet Count 276 T/CUMM (130-400); Red Blood Count 2.87 MC/CUMM (3.8-5.5); Red Cell Distribution Width 18.6 % (9.3-17.3); White Blood Count 16.4 T/CUMM (4-12)
[2020-12-22 04:36] LABS: Lymphocytes 4 % (20-55); Platelet Estimate Adequate; Segmented Neutrophils 94 % (50-85); Total Cells Counted 100
[2020-12-22 04:37] LABS: Hypochromasia 1+; Microcytosis 1+
[2020-12-22 04:44] LABS: Calcium 7.8 MG/DL (8.5-10.1); Osmolality,Calculated 296.4 MOS/KG (273-304); Potassium 3.2 MMOL/L (3.5-5.1)
[2020-12-22 04:52] LABS: Allen Test Positive; Pt O2 Delivery Device Ventilator
[2020-12-22 04:53] LABS: ABG Base Excess 8.6 MMOL/L (-2.5-2.5); ABG HCO3 32.1 MMOL/L (20-26); ABG Oxygen Saturation 93.8 % (95-100); ABG PCO2 39.8 MM HG (35-48); ABG PH 7.524 (7.35-7.45); ABG PO2 66.5 MM HG (80-95); ABG TCO2 33.3 MMOL/L (23-27)
[2020-12-22] MEDS: MEROPENEM 500 MG in SODIUM CHLORIDE 0.9% 100 ML IV SCH (05:50)
[2020-12-22] MEDS ORDERED: FUROSEMIDE 40 MG/4 ML VIAL IV ONE (07:24)
[2020-12-22] MEDS: ASPIRIN CHEW 81 MG TABLET PO SCH (08:17)
[2020-12-22] MEDS: AMIODARONE 200 MG TABLET PER TUBE SCH (08:17)
[2020-12-22] MEDS: FLUDROCORTISONE 0.1 MG TABLET PER TUBE SCH (08:17)
[2020-12-22] MEDS: POTASSIUM CHLORIDE 20 MEQ/15 ML UDCUP PER TUBE PRN ×4 (08:18→14:00)
[2020-12-22] MEDS: ENOXAPARIN 40 MG/0.4 ML SYRINGE SUBCUT SCH (08:18)
[2020-12-22] MEDS: PANTOPRAZOLE 40 MG VIAL IV SCH (08:20)
[2020-12-22] MEDS: HYDROCORTISONE 100 MG VIAL IV SCH (08:20)
[2020-12-22] MEDS: POLYETHYLENE GLYCOL POWDER 17 GM PACK PO SCH (08:21)
[2020-12-22] MEDS ORDERED: HYDROCORTISONE 10 MG TABLET PO SCH (21:00)
== END 2020-12-22 17:40 | DRG 870 ==
LOC: EDUNIT# → EDBD → N.ED 03:10 → SUATTDRO 05:04 → N.EDINP 05:04 → N.CC 07:20
PROVIDERS: ADMIT Internal Medicine; ATTEND Internal Medicine